=== PATIENT | male | born 1965 | race American Indian/Alaskan Native ===

== ENCOUNTER 2018-09-04 07:43 | Emergency (ER) | payer BC ==
[2018-09-04 07:52] VITALS: BP 140/86
--- NOTE | 2018-09-04 08:44 | Emergency Department Report ---
ED General Adult HPI - General Chief complaint: Skin Rash Stated complaint: POISEN MAGDALENO BLISTER Time Seen by Provider: 09/04/18 08:39 Source: patient Mode of arrival: Ambulatory Limitations: No Limitations - History of Present Illness Initial comments: Patient is 53 years old male recent diagnosis of poison magdaleno started on prednisone. Patient stated that he use alcohol to help with itching but it causes more blisters. Patient denied any shortness of redness, cough or stridor. - Related Data Allergies Allergy/AdvReac Type Severity Reaction Status Date / Time No Known Allergies Allergy Unverified 09/04/18 07:48 ED Review of Systems ROS: Stated complaint: POISEN MAGDALENO BLISTER Other details as noted in HPI Comment: All other systems reviewed and negative Constitutional: denies: chills, fever Gastrointestinal: denies: abdominal pain, nausea Neurological: denies: headache, weakness ED Past Medical Hx - Past Medical History Previous Medical History?: No - Surgical History Past Surgical History?: No - Social History Smoking Status: Never Smoker Substance Use Type: Prescribed ED Physical Exam - General Limitations: No Limitations General appearance: alert, in no apparent distress - Head Head exam: Present: atraumatic, normocephalic - ENT ENT exam: Present: normal exam, normal orophraynx, mucous membranes moist - Respiratory Respiratory exam: Present: normal lung sounds bilaterally - Cardiovascular Cardiovascular Exam: Present: normal heart sounds - Back Exam Back exam: Present: normal inspection - Neurological Exam Neurological exam: Present: alert, oriented X3, CN II-XII intact - Skin Skin exam: Present: other (left wrist skin area with blisters, no clinical evidence of infection.) ED Course Vital Signs 09/04/18 07:50 Temperature 97.6 F Pulse Rate 47 L Respiratory 18 Rate Blood Pressure 140/86 O2 Sat by Pulse 99 Oximetry Critical care attestation.: If time is entered above; I have spent that time in minutes in the direct care of this critically ill patient, excluding procedure time. ED Disposition Clinical Impression: Poison magdaleno Disposition: DC-01 TO HOME OR SELFCARE Is pt being admited?: No Condition: Stable Instructions: Contact Dermatitis (ED), Poison Magdaleno (ED) Referrals: PRIMARY CARE, [Referring] - 3-5 Days
== END 2018-09-04 09:03 | disposition home or self-care (01) ==
LOC: ED 07:43
DX: L23.7 Allergic contact dermatitis due to plants, except food (principal)
CPT/HCPCS: 99282

== ENCOUNTER 2021-05-03 18:14 | Emergency (ER) | payer BC | END 2021-05-04 05:45 | disposition left against medical advice (07) | LOC: ED 18:14 | DX: R05.9 Cough, unspecified (principal); Z53.21 Procedure and treatment not carried out due to patient leaving prior to being seen by health care provider ==